=== PATIENT | female | born 1980 | race Caucasian/White ===

== ENCOUNTER 2017-07-21 23:55 | Emergency (ER) | payer OTHER ==
[~2017-07-21] VITALS: Ht 154.9 cm; Wt 63.5 kg
[2017-07-22 00:02] VITALS: BP_SYST 131
[2017-07-22 00:28] VITALS: BP_SYST 131
== END 2017-07-22 00:28 ==
LOC: SED 23:55
DX: Z02.89 Encounter for other administrative examinations (principal)